=== PATIENT | female | born 1990 | race American Indian/Alaskan Native ===

== ENCOUNTER 2018-10-26 09:59 | Emergency (ER) | payer SELFPAY ==
--- NOTE | 2018-10-26 10:29 | Emergency Department Report ---
ED Dysuria HPI - HPI Chief Complaint: Abdominal Pain Stated Complaint: dark urine and l side pain Time Seen by Provider: 10/26/18 10:28 Duration: 3 Days Location of Discomfort: Flank Symptoms: Dysuria: Yes, Frequency: No, Suprapubic Pain: No, Flank Pain: Yes, Fever: No, Hematuria: No, Abdominal Pain: No, Previous UTI's: Yes Other History: co strong odor to urine and l flank pain. lmp 12-18. no vag dc and not concerned for STI. ED Review of Systems ROS: Stated complaint: PAIN ON (L) SIDE OF BODY Other details as noted in HPI Comment: All other systems reviewed and negative Constitutional: denies: chills, fever Eyes: denies: eye pain ENT: denies: throat pain Respiratory: denies: cough Cardiovascular: denies: chest pain, palpitations, dyspnea on exertion, orthopnea, edema, syncope, paroxysmal nocturnal dyspnea Endocrine: denies: see HPI, flushing Gastrointestinal: denies: nausea Genitourinary: as per HPI, dysuria. denies: urgency, hematuria Musculoskeletal: denies: back pain Skin: denies: rash Neurological: denies: headache Psychiatric: denies: as per HPI, anxiety, other (in stress) Hematological/Lymphatic: denies: easy bleeding ED Past Medical Hx - Past Medical History Previous Medical History?: No - Surgical History Past Surgical History?: No - Family History Family history: no significant - Social History Smoking Status: Never Smoker Substance Use Type: Alcohol - Medications Home Medications: Home Medications Medication Instructions Recorded Confirmed Last Taken Type Sulfamethoxazole/Trimethoprim 1 each PO BID #6 tablet 10/26/18 Unknown Rx [Bactrim DS TAB] Dysuria Exam - Exam General: Vital signs noted. No distress. Alert and acting appropriately. Exam: Yes Moist Mucous Membranes, No CVA Tenderness, No Abdominal Tenderness, No Rigidity or Guarding ED Course Vital Signs 10/26/18 10/26/18 10:12 10:27 Temperature 97.8 F Pulse Rate 66 Respiratory 16 16 Rate Blood Pressure 115/69 O2 Sat by Pulse 99 Oximetry ED Medical Decision Making - Medical Decision Making not concerned for STI lmp 12-18 pos dysuria and flank pain preg neg tr leuk in urine no cva tenderness vs normal no fever Labs 10/26/18 Unknown Urine Color Yellow Urine Turbidity Clear Urine pH 5.0 Ur Specific [place] 1.028 Urine Protein <15 mg/dl Urine Glucose (UA) Neg Urine Ketones Neg Urine Blood Neg Urine Nitrite Neg Ur Reducing Substances Not Reportable Urine Bilirubin Neg Urine Ictotest Not Reportable Urine Urobilinogen 4.0 Ur Leukocyte Esterase Sm Urine WBC (Auto) 19.0 H Urine RBC (Auto) 4.0 U Epithel Cells (Auto) 3.0 Urine Bacteria (Auto) 2+ Urine Mucus 3+ Urine HCG, Qual Negative - Differential Diagnosis ro preg/ ro uti Critical care attestation.: If time is entered above; I have spent that time in minutes in the direct care of this critically ill patient, excluding procedure time. ED Disposition Clinical Impression: UTI (urinary tract infection) Disposition: TO HOME OR SELFCARE Is pt being admited?: No Does the pt Need Aspirin: No Condition: Stable Instructions: Urinary Tract Infection in Women (ED) Additional Instructions: hydrate well with water meds as ordered today motrin or tylenol for pain or fever follow up with pcp referral below Prescriptions: Sulfamethoxazole/Trimethoprim [Bactrim DS TAB] 1 each PO BID #6 tablet Referrals: ZEINAB PATRICK MD [Primary Care Provider] - 3-5 Days Time of Disposition: 12:01
[2018-10-26 11:44] LABS: HCG Qualitative,Urine Negative (Negative)
[2018-10-26 11:55] LABS: Bacteria,Urine 2+ /HPF (Negative); Bilirubin,Urine NEG (Negative); Blood,Urine NEG (Negative); Color,Urine Yellow (Yellow); Mucus,Urine 3+ /HPF; Protein,Urine <15 mg/dL mg/dL (Negative)
[2018-10-26 12:51] VITALS: BP 118/70
== END 2018-10-26 12:30 | disposition home or self-care (01) ==
LOC: ED 09:59
DX: N39.0 Urinary tract infection, site not specified (principal)
CPT/HCPCS: 81001; 81025; 99283